=== PATIENT | male | born 1960 | race Caucasian/White ===

== ENCOUNTER 2017-10-18 08:34 | Emergency (ER) | payer OTHER ==
[~2017-10-18] VITALS: Ht 167.6 cm; Wt 70.0 kg
[2017-10-18 08:55] VITALS: BP 168/65; PULSE 98; RESP 16; TEMP 97.4; O2SAT 99
--- NOTE | 2017-10-18 09:22 | PD ---
HPI Chief Complaint: Alcohol/Drug Intoxication Time Seen by Provider: 09:07 Travel History International Travel<30 days: No Contact w/Intl Traveler<30days: No Traveled to known affect area: No History of Present Illness HPI This is a 57-year-old male who presents to the emergency department with vomiting, constant, not able to keep anything down lasting for 5 days associated with some upper abdominal discomfort. He says he has been binge drinking over the past 5 days. He has a history of alcoholism. He is a and [facility]. His friend was concerned about them this morning and called 911 and told him to come to the emergency department. [facility] Past Medical History Heart Rhythm Problems: No Cardiac Catheterization: No Cardiovascular Problems: No High Cholesterol: No Congestive Heart Failure: No Diabetes: No Inguinal Hernia: Yes Tetanus Vaccination: Unknown Influenza Vaccination: No Past Surgical History Surgical History: No Previous Surgery Coronary Artery Bypass Graft: No Social History Alcohol Use: Yes (daily) Tobacco Use: Yes Substance Use: No Allergies-Medications (Allergen,Severity, Reaction): Coded Allergies: No Known Allergies (Verified Adverse Reaction, Unknown, 10/18/17) Reported Meds & Prescriptions Reported Meds & Active Scripts Active No Active Prescriptions or Reported Medications Review of Systems Except as stated in HPI: all other systems reviewed are Neg Physical Exam Narrative GENERAL: Thin, unkempt SKIN: Focused skin assessment warm and dry. HEAD: Atraumatic. Normocephalic. EYES: Pupils equal and round. No injection or drainage. ENT: Moist mucous membranes NECK: Trachea midline. CARDIOVASCULAR: Regular rate and rhythm. No murmur appreciated. RESPIRATORY: Clear to auscultation. Breath sounds equal bilaterally. GASTROINTESTINAL: Abdomen soft, mildly tender to palpation in the epigastrium with no rebound or guarding. MUSCULOSKELETAL: No obvious deformities. NEUROLOGICAL: Awake and alert. No obvious cranial nerve deficits. Moving all extremities. PSYCHIATRIC: Appropriate mood and affect; insight and judgment normal. Data Data Last Documented VS Vital Signs Date Time Temp Pulse Resp B/P (MAP) Pulse Ox O2 Delivery O2 Flow Rate FiO2 10/18/17 09:17 18 Room Air 10/18/17 08:55 97.4 98 168/65 (99) 99 Orders Orders Complete Blood Count With Diff (10/18/17 09:16) Comprehensive Metabolic Panel (10/18/17 09:16) Sodium Chlor 0.9% 1000 Ml Inj (Ns 1000 M (10/18/17 09:30) Thiamine Inj (Thiamine Inj) (10/18/17 09:30) Ondansetron Odt (Zofran Odt) (10/18/17 09:30) Lipase (10/18/17 09:16) Labs Laboratory Tests Test 10/18/17 09:30 White Blood Count 7.5 TH/MM3 Red Blood Count 4.34 MIL/MM3 Hemoglobin 14.7 GM/DL Hematocrit 43.5 % Mean Corpuscular Volume 100.3 FL Mean Corpuscular Hemoglobin 34.0 PG Mean Corpuscular Hemoglobin Concent 33.9 % Red Cell Distribution Width 14.7 % Platelet Count 212 TH/MM3 Mean Platelet Volume 8.1 FL Neutrophils (%) (Auto) 69.0 % Lymphocytes (%) (Auto) 15.9 % Monocytes (%) (Auto) 8.4 % Eosinophils (%) (Auto) 5.4 % Basophils (%) (Auto) 1.3 % Neutrophils # (Auto) 5.2 TH/MM3 Lymphocytes # (Auto) 1.2 TH/MM3 Monocytes # (Auto) 0.6 TH/MM3 Eosinophils # (Auto) 0.4 TH/MM3 Basophils # (Auto) 0.1 TH/MM3 CBC Comment DIFF FINAL Differential Comment Blood Urea Nitrogen 12 MG/DL Creatinine 0.98 MG/DL Random Glucose 74 MG/DL Total Protein 7.7 GM/DL Albumin 3.9 GM/DL Calcium Level 8.9 MG/DL Alkaline Phosphatase 54 U/L Aspartate Amino Transf (AST/SGOT) 55 U/L Alanine Aminotransferase (ALT/SGPT) 49 U/L Total Bilirubin 0.8 MG/DL Sodium Level 138 MEQ/L Potassium Level 4.8 MEQ/L Chloride Level 100 MEQ/L Carbon Dioxide Level 24.3 MEQ/L Anion Gap 14 MEQ/L Estimat Glomerular Filtration Rate 78 ML/MIN Lipase 153 U/L MDM Medical Decision Making Medical Screen Exam Complete: Yes Emergency Medical Condition: Yes Interpretation(s) Labs are all reassuring Differential Diagnosis Gastritis, pancreatitis, alcoholic ketoacidosis Narrative Course This is a 57-year-old male who presents to the emergency department having been binge drinking with vomiting and upper abdominal pain. I suspect the patient is alcoholic gastritis. Labs were all reassuring. He was given IV fluids and thiamine in the emergency department. [facility] to get [facility]. I think he can safely be discharged home. Diagnosis Primary Impression: Alcoholic gastritis Qualified Codes: K29.20 - Alcoholic gastritis without bleeding Patient Instructions: General Instructions Additional Instructions: If you develop severe or worsening abdominal pain, fever>100.4, persistent vomiting or inability to eat or drink return to the emergency department immediately. Follow up with your primary care physician in 1-2 days for a check-up. Med/Other Pt SpecificInfo: Prescription(s) given Scripts Ranitidine (Ranitidine) 150 Mg Tab 150 MG PO BID for Heartburn Management, #60 TAB 0 Refills Prov: Dee Adler MD 10/18/17 Disposition: 01 DISCHARGE HOME Condition: Stable Dee Adler MD Oct 18, 2017 09:22
[2017-10-18] MEDS ORDERED: ONDANSETRON ODT 4 MG TAB PO ONE (09:30)
[2017-10-18] MEDS ORDERED: SODIUM CHLOR 0.9% 1000 ML INJ 1,000 ML IV ONE (09:30)
[2017-10-18] MEDS ORDERED: THIAMINE INJ 100 MG in SODIUM CHLORIDE 0.9% INJ 100 ML IV ONE (09:30)
[2017-10-18 09:51] LABS: AUTOMATED NEUTROPHIL # 5.2 TH/MM3 (1.8-7.7); BASOPHIL # 0.1 TH/MM3 (0-0.2); BASOPHIL % 1.3 % (0.0-2.0); EOSINOPHIL # 0.4 TH/MM3 (0-0.4); EOSINOPHIL % 5.4 % (0.0-4.0); HEMATOCRIT 43.5 % (39.0-51.0); HEMOGLOBIN 14.7 GM/DL (13.0-17.0); LYMPH % 15.9 % (9.0-44.0); LYMPHOCYTE # 1.2 TH/MM3 (1.0-4.8); MEAN CELL VOLUME 100.3 FL (80.0-100.0); MEAN CORPUSCULAR HGB CONC 33.9 % (32.0-36.0); MEAN PLATELET VOLUME 8.1 FL (7.0-11.0); MONO % 8.4 % (0.0-8.0); MONOCYTE # 0.6 TH/MM3 (0-0.9); PLATELET COUNT 212 TH/MM3 (150-450); RED BLOOD COUNT 4.34 MIL/MM3 (4.50-5.90); RED CELL DISTRIBUTION WIDTH 14.7 % (11.6-17.2); WHITE BLOOD COUNT 7.5 TH/MM3 (4.0-11.0)
[2017-10-18 10:10] LABS: ALBUMIN 3.9 GM/DL (3.4-5.0); ALT (GPT) 49 U/L (12-78); AST (GOT) 55 U/L (15-37); BICARBONATE 24.3 MEQ/L (21.0-32.0); BLOOD UREA NITROGEN 12 MG/DL (7-18); CALCIUM 8.9 MG/DL (8.5-10.1); CHLORIDE 100 MEQ/L (98-107); CREATININE 0.98 MG/DL (0.60-1.30); GLOMERULAR FILTRATION RATE 78 ML/MIN (>89); GLUCOSE,RANDOM 74 MG/DL (74-106); SODIUM (NA) 138 MEQ/L (136-145)
[2017-10-18 10:12] LABS: ALKALINE PHOSPHATASE 54 U/L (45-117); TOTAL BILIRUBIN ADULT 0.8 MG/DL (0.2-1.0); TOTAL PROTEIN 7.7 GM/DL (6.4-8.2)
[2017-10-18] MEDS ORDERED: RANI150T PO (10:15)
[2017-10-18 11:01] VITALS: BP 163/86; TEMP 98.2
== END 2017-10-18 11:01 | disposition home or self-care (01) ==
LOC: NEPD 08:34
DX: K29.20 Alcoholic gastritis without bleeding (principal); F10.20 Alcohol dependence, uncomplicated; Z72.0 Tobacco use
CPT/HCPCS: 80053; 83690; 85025; 96361; 96365; 99284; J3411; J7030